=== PATIENT | female | born 1980 | race Caucasian/White ===

== ENCOUNTER → 2020-11-18 | Outpatient (CLI) | payer OTHER | LOC: M.ULTRA 10:56 | PROVIDERS: ATTEND Family Medicine | DX: E04.1 Nontoxic single thyroid nodule (principal); J45.40 Moderate persistent asthma, uncomplicated ==

== ENCOUNTER → 2020-11-25 | Outpatient (CLI) | payer OTHER ==
--- NOTE | 2020-12-01 13:53 | PATH ---
[address] [address] PATHOLOGY RPT PROCEDURE Name: NIKKI MENDOZA [facility] [id number] Admission: 11/25/20 Date of : 78 Discharge: Report #: [id number] Path Case #: [id number] Note [facility] Accession Number: [id number] TESTS RESULT FLAG UNITS REF RANGE LAB Clinician Provided Cytology Information No. of containers..01 Other (Miscellaneous) Source: 01 RIGHT THY DIAGNOSIS: 02 RIGHT THYROID NODULE, IMAGE-GUIDED FNA: B[place] CATEGORY II. SPECIMEN CONSISTS OF FOLLICULAR CELLS WITH SOME COLLOID AND ABUNDANT LYMPHOCYTES CHARACTERISTIC OF LYMPHOCYTIC THYROIDITIS. THIS INTERPRETATION INCLUDES EVALUATION OF A CELL BLOCK. Pathologist ICD10: 02 R89.6 Signed out by: 02 Rashad Kaplan MD, Pathologist NPI- [id number] Performed by: Ovidio Lloyd, Check Processing Clerk ([facility]) Gross description: 01 20ML, CLEAR RED, 20ML /LCS 11/26/2020 0519 Local FLAG LEGEND: L-Low Normal,H-High Normal,LL-Alert Low,HH-Alert High <-Panic Low,>-Panic High,A-Abnormal,AA-Critical Abnormal Performed at: [address] [place] [address] Curt Nesbitt MD, [address] [place] [address] [place] [address] Rashad Kaplan MD, Specimen Comment: A courtesy copy of this report has been sent to [phone], [phone] Specimen Comment: [phone] Specimen Comment: Report sent to / DR NG Specimen Comment: A duplicate report has been generated due to demographic updates. Performed at: [address], [place], [place] [id number] MD Curt Nesbitt MD Phone: [phone]
--- NOTE | 2020-12-01 13:53 | PATH ---
[address] [address] PATHOLOGY RPT PROCEDURE Name: NIKKI MENDOZA Room: [facility].#: [id number] Admission: 11/25/20 Date of : 78 Discharge: Report #: [id number] Path Case #: [id number] Note [facility] Accession Number: [id number] TESTS RESULT FLAG UNITS REF RANGE LAB Clinician Provided Cytology Information No. of containers..01 Other (Miscellaneous) Source: 01 LEFT THY DIAGNOSIS: 02 LEFT SUPERIOR POLE THYROID (1.5 X 1.33 X 0.81 CM) IMAGE-GUIDED FNA: NEGATIVE FOR MALIGNANT CELLS. BETHESDA CATEGORY II. SPECIMEN CONSISTS OF A HETEROGENEOUS LYMPHOID POPULATION, HURTHLE CELLS, AND FOLLICULAR CENTER FRAGMENTS. THIS PATTERN IS CONSISTENT WITH A CHRONIC LYMPHOCYTIC THYROIDITIS. Pathologist ICD10: 02 E06.3 Signed out by: 02 Rashad Kaplan MD, Pathologist NPI- [id number] Performed by: Ovidio Desai, Insurance Administrator ([facility]) Gross description: 01 25ML, CLEAR RED, 4 F 4AD /LCS 11/26/2020 0515 Local FLAG LEGEND: L-Low Normal,H-High Normal,LL-Alert Low,HH-Alert High <-Panic Low,>-Panic High,A-Abnormal,AA-Critical Abnormal Performed at: [address] [place] [address] Curt Nesbitt MD, [address] [place] [address] [place] [address] Rashad Kaplan MD, Specimen Comment: A courtesy copy of this report has been sent to [phone], [phone] Specimen Comment: [phone] Specimen Comment: Report sent to / DR NG Specimen Comment: A duplicate report has been generated due to demographic updates. Performed at: [address], [place], [place] [id number] MD Curt Nesbitt MD Phone: [phone]
== END | disposition home or self-care (01) ==
LOC: M.ULTRA 08:09
PROVIDERS: ATTEND Family Medicine
DX: E04.2 Nontoxic multinodular goiter (principal); Z79.899 Other long term (current) drug therapy